=== PATIENT | male | born 1980 | race Caucasian/White ===

== ENCOUNTER → 2018-05-03 17:02 | Outpatient (CLI) | payer BC, SELFPAY ==
--- NOTE | 2018-05-03 17:08 | RAD_ITS ---
STUDY: X-RAY - LEFT HAND REASON FOR EXAM: Male, 38 years old. Trauma TECHNIQUE: 3 view(s) of the hand. COMPARISON: None. FINDINGS: Normal radiocarpal articulation. Normal distal radioulnar joint. Normal visualized carpal bones. Normal carpal articulations Normal carpometacarpal articulation of the thumb. Normal second through fifth carpometacarpal joints. Normal metacarpi. Normal metacarpophalangeal joint of the thumb. Normal interphalangeal joint of the thumb. Normal proximal and distal phalanges of the thumb. Normal metacarpophalangeal joints of the second through fifth fingers. Normal proximal and distal interphalangeal joints of the second through fifth fingers. Normal phalanges of the second through fifth fingers. The soft tissue structures are unremarkable. RAD/Hand Min 3 Views IMPRESSION: Normal x-ray examination of the hand. Electronically Signed: Ric Brown MD at 17:29 EDT , Service support ,
== END ==
PROVIDERS: Visit Provider Physician Assistant Surgical
DX: S60.222A Contusion of left hand, initial encounter (principal); S60.00XA Contusion of unspecified finger without damage to nail, initial encounter
CPT/HCPCS: 73130